=== PATIENT | male | born 1970 | race Caucasian/White ===

== ENCOUNTER 2025-04-26 08:13 | Outpatient (CLI) | payer BC ==
[2025-04-26] MEDS ORDERED: Iopamidol 300 61% 100 ML VIAL FS ONE (10:36)
== END 2025-04-26 08:14 | disposition home or self-care (01) ==
LOC: CSHCT 08:13
PROVIDERS: ATTEND Family Medicine
DX: R10.12 Left upper quadrant pain (principal); Z98.890 Other specified postprocedural states; R93.5 Abnormal findings on diagnostic imaging of other abdominal regions, including retroperitoneum; S22.32XK Fracture of one rib, left side, subsequent encounter for fracture with nonunion; J94.8 Other specified pleural conditions
CPT/HCPCS: 74177